=== PATIENT | male | born 1990 | race Caucasian/White ===

== ENCOUNTER 2021-07-14 21:31 | Emergency (ER) | payer OTHER, SELFPAY ==
[2021-07-14] MEDS ORDERED: Bupivacaine PF 0.5% 30 ML VIAL ONE (22:13)
== END 2021-07-14 23:05 | disposition home or self-care (01) ==
LOC: CSHERS 21:31
DX: S51.851A Open bite of right forearm, initial encounter (principal); W54.0XXA Bitten by dog, initial encounter
CPT/HCPCS: 12002; S0020